=== PATIENT | female | born 1960 | race Caucasian/White ===

== ENCOUNTER 2018-06-09 17:46 | Emergency (ER) | payer OTHER ==
[2018-06-09 19:45] LABS: URINE BLOOD (Dip) POC 2+ (NEGATIVE); URINE GLUCOSE (Dip) POC Negative (NEGATIVE); URINE KETONES (Dip) POC Negative (NEGATIVE); URINE LEUKOCYTE EST (Dip) POC 1+ (NEGATIVE); URINE NITRITE (Dip) POC Negative (NEGATIVE); URINE TOTAL PROTEIN POC Negative (NEGATIVE)
[2018-06-09 19:45] LABS: URINE PH (Dip) POC 5.5 (5.0-8.5)
[2018-06-09] MEDS: ONDANSETRON 4 MG INJ IV (21:40)
[2018-06-09] MEDS: LIDOCAINE/MYLANTA 40 ML BTL PO (21:40)
[2018-06-09] MEDS: SOD CHLORIDE 0.9% 1,000 ML IV (21:40)
[2018-06-09] MEDS: FAMOTIDINE 20 MG TAB PO (21:41)
[2018-06-09] MEDS: KETOROLAC 15 MG INJ IV (21:41)
[2018-06-09] MEDS: BELLADONNA/PHENOBARBITAL TAB PO (21:41)
[2018-06-09] MEDS: ALPRAZOLAM 1 MG TAB PO (21:41)
[2018-06-09 21:54] LABS: ADD MAN DIFF? NO
[2018-06-09 21:56] LABS: BASOPHILS % 0.2 % (0.0-2.0); EOSINOPHILS # 0.3 10^3/ul (0.0-0.5); EOSINOPHILS % 2.6 % (0.0-7.0); HEMATOCRIT 42.7 % (37.0-47.0); LYMPHOCYTES % 30.9 % (15.0-51.0); MEAN CORPUSCULAR HEMOGLOBIN 31.3 pg (29.0-33.0); MEAN CORPUSCULAR HGB CONC 32.8 g/dl (32.0-37.0); MEAN CORPUSCULAR VOLUME 95.5 fl (82.0-101.0); MEAN PLATELET VOLUME 11.3 fl (7.4-10.4); MONOCYTE # 0.5 10^3/ul (0.3-0.9); MONOCYTES % 4.6 % (0.0-11.0); NEUTROPHILS % 61.4 % (39.0-77.0); PLATELET COUNT 281 10^3/UL (140-415); RED BLOOD COUNT 4.47 10^6/ul (4.20-5.40); RED CELL DISTRIBUTION WIDTH 12.1 % (11.5-14.5)
[2018-06-09 21:56] LABS: WHITE BLOOD COUNT 9.7 10^3/ul (4.8-10.8)
[2018-06-09 22:01] LABS: ADD UMIC YES; UR ASCORBIC ACID NEGATIVE (NEGATIVE); UR BACTERIA FEW /HPF (NONE SEEN); UR BILIRUBIN (Dip) NEGATIVE (NEGATIVE); UR BLOOD (Dip) 2+ mg/dL (NEGATIVE); UR CLARITY CLEAR (CLEAR); UR COLOR YELLOW (YELLOW); UR GLUCOSE (Dip) NEGATIVE (NEGATIVE); UR KETONES (Dip) NEGATIVE (NEGATIVE); UR LEUKOCYTE ESTERASE (Dip) 1+ Leu/ul (NEGATIVE); UR NITRITE (Dip) NEGATIVE (NEGATIVE); UR RBC 3 /HPF (0-5); UR SPECIFIC GRAVITY (Dip) 1.015 (1.003-1.030); UR SQUAMOUS EPITHELIAL CELL FEW /HPF (FEW); UR TOTAL PROTEIN (Dip) NEGATIVE (NEGATIVE); UR UROBILINOGEN (Dip) NEGATIVE (NEGATIVE); UR WBC 4 /HPF (0-5)
[2018-06-09 22:06] LABS: ALANINE AMINOTRANSFERASE 41 IU/L (13-69); ALBUMIN 4.3 g/dl (3.3-4.9); ALBUMIN/GLOBULIN RATIO 1.07; ALKALINE PHOSPHATASE 94 IU/L (42-121); ANION GAP 14 (8-16); ASPARTATE AMINO TRANSFERASE 56 IU/L (15-46); BILIRUBIN,INDIRECT 0.1 mg/dl (0-1.1); BILIRUBIN,TOTAL 0.1 mg/dl (0.2-1.3); BLOOD UREA NITROGEN 13 mg/dl (7-20); CALCIUM 9.3 mg/dl (8.4-10.2); CARBON DIOXIDE 30 mmol/L (21-31); CHLORIDE 103 mmol/L (97-110); CREATININE 0.58 mg/dl (0.44-1.00); GLUCOSE 107 mg/dl (70-220); LIPASE 93 U/L (23-300); POTASSIUM 3.7 mmol/L (3.5-5.1); SODIUM 143 mmol/L (135-144); TOTAL PROTEIN 8.3 g/dl (6.1-8.1)
[2018-06-09 22:17] LABS: TROPONIN-I < 0.010 ng/ml (0.000-0.120)
[2018-06-09] MEDS: CEPHALEXIN 500 MG CAP PO (22:46)
== END 2018-06-10 00:28 | disposition home or self-care (01) ==
LOC: E/R 06-10 00:28
DX: N30.00 Acute cystitis without hematuria (principal); G44.209 Tension-type headache, unspecified, not intractable; K29.00 Acute gastritis without bleeding; F41.9 Anxiety disorder, unspecified; I10 Essential (primary) hypertension; E11.9 Type 2 diabetes mellitus without complications; E66.9 Obesity, unspecified; Z79.84 Long term (current) use of oral hypoglycemic drugs
CPT/HCPCS: 36415; 71045; 80053; 81001; 81003; 83690; 84484; 85025; 93005; 96374; 96375; 99284-25